=== PATIENT | male | born 1955 | race Caucasian/White ===

== ENCOUNTER → 2022-07-24 13:20 | Outpatient (BNVA) | payer MEDICARE, SELFPAY | PROVIDERS: PCP Internal Medicine; Visit Provider Neurological Surgery | DX: M51.16 Intervertebral disc disorders with radiculopathy, lumbar region (principal) | CPT/HCPCS: 99202 ==

== ENCOUNTER 2022-09-17 14:00 | Outpatient (RCR) | payer MEDICARE, SELFPAY ==
--- NOTE | 2022-08-21 09:30 | MHC.PT.EP ---
[facility] [place] Office [place] Office [place] Office [address] Patricia Mccurdy [address] [phone] F: [phone] F: [phone] F: [phone] F: [phone] Physical Therapy Plan of Care Date of Evaluation: Date of Surgery: n/a Diagnosis: L2-3 Disk herniation Assessment: Patient is a 67 year old male presenting to PT with complaints of pain in his low back. Pt reports onset of pain began about 6 months ago due to insidious onset. He presents today with impairments in extremely high pain levels, posture, and also LE strength, and likely ROM/core strength however this could not formerly be assessed due to time constraints during eval. Pt's current occupation is disabled, with baseline physical activities including sitting and sleeping. Pt expresses care home goal of reducing pain, and is motivated to work towards this in PT. Clinical presentation today is most consistent with signs and sx associated with physician dx of L2-3 disc herniation and pt will benefit from skilled PT 2 week x 3 weeks to address the following problems and impairments noted upon evaluation: pain, posture, LE strength, likely core strength, and ROM as well. His rehab potential is fair due to multiple comorbidities and severely limited functional status. These problems limit the patient with the following functional activities: sitting, sleeping, and QOL. The prescribed treatment plan of care is medically necessary. Co-morbidities of DM, lymphedema B legs, skin cancer, HTN, hx stroke w/ residual R hemiparesis, shunt in head were identified and taken into considerations of plan of care. Pt was educated on HEP, role of PT, prognosis, POC. Frequency and Duration: The patient will be seen 2 x week x 3 weeks Short Term Goals: Pt will demonstrate improved lumbar pain levels to <3/10 on average during the day in 2 weeks. Pt will demonstrate compliance with initial HEP in 2 visits. Pl[facility] Hand Goals: Pt will demonstrate improved Rogerio score by 10% in 3 weeks for improved tolerance to functional mobility. Pt will report improved ability to sleep with less pain in 3 weeks for improved QOL. Treatment Plan: Modalities to reduce pain, spasms and effusion. Manual therapy to restore motion and function. Therapeutic exercise to improve strength and flexibility. Neuromuscular re-education for posture and balance. Therapeutic activities to return to functional activities of daily living. Electronically signed by: Hayde Fraser, PT, DPT, ATC Please sign and return to therapist. Thank you for your referral.
--- NOTE | 2022-10-17 15:56 | MHC.PT.DC ---
[facility] [place] Office [place] Office [place] Office [address] Patricia Mccurdy [address] [phone] F: [phone] F: [phone] F: [phone] F: [phone] Physical Therapy Discharge Report Diagnosis: L2-3 Disk herniation Date of Surgery: n/a Date of Evaluation: 08/20/22 Date of Discharge: 10/17/22 Treatments to Date: 5 Cancellations to Date: 2 No Shows to Date: 0 Discharge Status: Improved Function Independent with HEP Discharge Summary: Pt cancelled his final scheduled appointment and has not reached out in >30 days. Pt was having reduced pain at that time. Pt to be d/c at this time. Electronically signed by: Hayde Fraser, PT, DPT, ATC Please sign and return to therapist. Thank you for your referral.
== END 2022-10-17 15:57 | disposition home or self-care (01) ==
LOC: HO.PTCHIC 14:00
PROVIDERS: PCP Internal Medicine; Visit Provider Physician Assistant
DX: M51.16 Intervertebral disc disorders with radiculopathy, lumbar region (principal)
CPT/HCPCS: 97110; 97163